=== PATIENT | female | born 1980 | race Caucasian/White ===

== ENCOUNTER 2016-06-04 11:41 | Emergency (ER) | payer OTHER ==
[2016-06-04] MEDS ORDERED: oxyCODONE 5 MG TABLET PO STA (13:07)
[2016-06-04] MEDS ORDERED: oxyCODONE 5 MG TABLET ONE (13:12)
[2016-06-04] MEDS ORDERED: HYDROcod/ACETAM 5/325 MG TABLET PO STA (13:17)
[2016-06-04] MEDS ORDERED: HYDROcod/ACETAM 5/325 MG TABLET ONE (13:18)
== END 2016-06-04 15:56 | disposition home or self-care (01) ==
DX: R10.2 Pelvic and perineal pain (principal)
CPT/HCPCS: 76856; 81001; 81025; 93975; 99283; 99284; A9270

== ENCOUNTER 2016-11-27 14:07 | Emergency (ER) | payer OTHER ==
[2016-11-27 14:52] LABS: BILIRUBIN,URINE NEGATIVE (NEGATIVE); PH,URINE 6.5 PH (5.0-7.5); UA CHARGE (STRIP ONLY) YES; UR CULTURE IF IND NOT INDICATED
[2016-11-27] MEDS ORDERED: SODIUM CHLORIDE 0.9% 1,000 ML IV ONE (17:18)
[2016-11-27] MEDS ORDERED: ONDANSETRON 4 MG/2 ML VIAL IVP STA ×2 (17:18→20:06)
[2016-11-27] MEDS ORDERED: HYDROmorphone 1 MG/ML SYRINGE IVP STA ×2 (17:18→19:35)
--- NOTE | 2016-11-27 17:24 | ED Physician Documentation ---
PD HPI ABD PAIN - Stated complaint Stated Complaint: L SIDE PAIN - Chief complaint Chief Complaint: Abd Pain - History obtained from History obtained from: Patient - History of Present Illness Timing - onset: Yesterday Timing - details: Gradual onset Quality: Sharp, Pain Location: LLQ Associated symptoms: Nausea. No: Fever, Vomiting, Diarrhea, Dysuria, Vaginal bleeding - Additional information Additional information: Patient is a 36-year-old female who presents with left lower quadrant abdominal pain that started yesterday and is worse today. She reports associated nausea, without vomiting or diarrhea. She denies fever or dysuria. Her last menstrual period was 2 weeks ago. She is status post appendectomy and status post left nephrectomy. She also has undergone laparoscopic surgery in June 2016 for left hydrosalpinx. Review of Systems Constitutional: denies: Fever Ears: denies: Tinnitus/ringing Nose: denies: Congestion Throat: denies: Sore throat Cardiac: denies: Chest pain / pressure Respiratory: denies: Dyspnea, Cough GI: reports: Abdominal Pain, Nausea. denies: Vomiting, Diarrhea : reports: LMP (2 weeks ago). 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 : Other Musculoskeletal: Fibromyalgia - Past Surgical History Past Surgical History: Yes General: Appendectomy, Other (Left nephrectomy) /PRIMARY CARE PHYSICIAN: Tubal ligation - Present Medications Home Medications: Ambulatory Orders Medication Instructions Recorded Confirmed Ranitidine HCl 150 mg TID 01/16/16 11/27/16 Gabapentin [Neurontin] 100 mg PO DAILY 11/27/16 11/27/16 HYDROcod/ACETAM 5/325 [Vicodin 1 - 2 ea PO Q6H PRN #20 tablet 11/27/16 5/325] Zolpidem [Ambien] 5 mg PO DAILY 11/27/16 11/27/16 - Allergies Allergies/Adverse Reactions: Allergies Allergy/AdvReac Type Severity Reaction Status Date / Time Penicillins Allergy Emesis Verified 11/27/16 16:21 - Social History Does the pt smoke?: No Smoking Status: Never smoker Does the pt drink ETOH?: No Does the pt have substance abuse?: No - Immunizations Immunizations are current?: Yes - POLST Patient has POLST: No PD ED PE NORMAL - Vitals Vital signs reviewed: Yes (normal) - General General: Alert and oriented X 3, Well developed/nourished - HEENT HEENT: Atraumatic, Pharynx benign - Neck Neck: No adenopathy, No JVD - Cardiac Cardiac: RRR, No murmur - Respiratory Respiratory: No respiratory distress, Clear bilaterally - Abdomen Abdomen: Normal bowel sounds, Soft, No organomegaly, Other (Mild tenderness to palpation across the lower abdomen, slightly more on the left than the right. No rebound tenderness or guarding.) - Back Back: No CVA TTP - Derm Derm: No rash - Extremities Extremities: No edema, No calf tenderness / cord - Neuro Neuro: Alert and oriented X 3, No motor deficit, Normal speech Results - Vitals Vitals: Vital Signs - 24 hr 11/27/16 11/27/16 15:47 19:35 Temperature 36 C L 36.5 C Heart Rate 78 70 Respiratory 16 18 Rate Blood Pressure 103/72 117/80 O2 Saturation 98 100 Oxygen O2 Source Room air - Labs Labs: Laboratory Tests 11/27/16 11/27/16 11/27/16 14:45 17:26 17:26 WBC 10.7 RBC 4.77 Hgb 13.6 Hct 39.6 MCV 83.1 MCH 28.6 MCHC 34.4 RDW 13.7 Plt Count 437 MPV 7.4 L Neut # 7.5 H Lymph # 2.3 [place] # 0.6 Eos # 0.2 Baso # 0.1 Absolute Nucleated RBC 0.00 Nucleated RBCs 0.0 Sodium 138 Potassium 3.8 Chloride 101 Carbon Dioxide 27 Anion Gap 10.0 BUN 6 Creatinine 0.7 Estimated GFR (MDRD) 94 Glucose 109 H Calcium 9.6 Total Bilirubin 0.4 AST 17 ALT 17 Alkaline Phosphatase 58 Total Protein 8.3 H Albumin 4.4 Globulin 3.9 Albumin/Globulin Ratio 1.1 Lipase 24 Urine Color YELLOW Urine Clarity CLEAR Urine pH 6.5 Ur Specific [place] <=1.005 Urine Protein NEGATIVE Urine Glucose (UA) NEGATIVE Urine Ketones NEGATIVE Urine Occult Blood NEGATIVE Urine Nitrite NEGATIVE Urine Bilirubin NEGATIVE Urine Urobilinogen 0.2 (NORMAL) Ur Leukocyte Esterase NEGATIVE Ur Microscopic Review NOT INDICATED Urine Culture Comments NOT INDICATED - Rads (name of study) CT abd/pelvis w/o Radiology: Prelim report reviewed, EMP read contemporaneously, See rad report ( No acute findings. Left adnexal complex cystic mass measures 5.4 x 3.7 x 6.3 cm. There is a complex cystic mass on the prior CT with which measured 5.1 x 3.1 x 5.0 cm. The MR pelvis shows this complex mass appears to be hydrosalpinx. No hydronephrosis. No urinary tract calculi.) PD MEDICAL DECISION MAKING - ED course Complexity details: reviewed old records, reviewed results, re-evaluated patient , considered differential, d/w patient, d/w family ED course: The patient's presentation with left lower quadrant/pelvic pain is most consistent with cystic mass consistent with left hydrosalpinx, seen on CT scan. This is similar to the CT scan that was done in June prior to her laparoscopic surgery. CBC reveals a normal white blood cell count and normal hemoglobin and hematocrit. Urinalysis is negative. Treatment in the emergency department included administration of normal saline 1 L IV, hydromorphone 0.5 mg IV 2, and Zofran 4 mg IV 2. This significantly improved the patient's discomfort. She is being discharged with prescription for Vicodin 20 tablets. I discussed with her and her the results of the CT scan, symptomatic treatment and outpatient follow-up, as well as potentially worrisome signs or symptoms that should prompt reevaluation in the emergency department. Departure - Departure Disposition: 01 Home, Self Care Clinical Impression: Hydrosalpinx Condition: Stable Instructions: ED Pelvic Pain [facility] Follow-Up: Manasa Rinaldi MD [Provider Admit Priv/Credential] - Prescriptions: HYDROcod/ACETAM 5/325 [Vicodin 5/325] 1 - 2 ea PO Q6H PRN #20 tablet PRN Reason: Pain Comments: You can use Vicodin as prescribed if needed for pain. Follow-up with your rod buster. Call to schedule next available appointment. Return to the emergency department if you develop increasing pain, persistent vomiting, or otherwise worsening symptoms. Discharge Date/Time: 11/27/16 20:49
[2016-11-27 17:36] LABS: BASOPHILS # (AUTO) 0.1 10^3/uL (0.0-0.1); BASOPHILS % (AUTO) 0.5 %; EOSINOPHILS # (AUTO) 0.2 10^3/uL (0.0-0.7); EOSINOPHILS % (AUTO) 1.9 %; HCT - HEMATOCRIT 39.6 % (37.0-47.0); HGB - HEMOGLOBIN 13.6 g/dL (12.0-16.0); LYMPHOCYTES # (AUTO) 2.3 10^3/uL (1.5-3.5); MEAN CORPUSCULAR HEMOGLOBIN 28.6 pg (27.0-31.0); MEAN CORPUSCULAR HGB CONC 34.4 g/dL (32.0-36.0); MEAN CORPUSCULAR VOLUME 83.1 fL (81.0-99.0); MEAN PLATELET VOLUME 7.4 fL (7.9-10.8); MONOCYTES # (AUTO) 0.6 10^3/uL (0.0-1.0); MONOCYTES % (AUTO) 5.5 %; NEUTROPHILS # (AUTO) 7.5 10^3/uL (1.5-6.6); NEUTROPHILS % (AUTO) 70.1 %; RED BLOOD COUNT 4.77 10^6/uL (4.20-5.40); RED CELL DISTRIBUTION WIDTH 13.7 % (12.0-15.0); UNCORRECTED WHITE BLOOD COUNT 10.7 x10^3/uL; WHITE BLOOD COUNT 10.7 x10^3/uL (4.8-10.8)
[2016-11-27] MEDS ORDERED: SODIUM CHLORIDE FLUSH 0.9% 10 ML SYRINGE IVP ONE (17:45)
[2016-11-27 17:56] LABS: ALBUMIN/GLOBULIN RATIO 1.1 (1.0-2.2); BILIRUBIN,TOTAL 0.4 mg/dL (0.2-1.0); CALCIUM 9.6 mg/dL (8.5-10.3); CREATININE 0.7 mg/dL (0.4-1.0); POTASSIUM 3.8 mmol/L (3.5-5.0); TOTAL PROTEIN 8.3 g/dL (6.7-8.2)
[2016-11-27] MEDS ORDERED: HYDROmorphone 1 MG/ML SYRINGE ONE ×2 (18:07→19:46)
[2016-11-27] MEDS ORDERED: ONDANSETRON 4 MG/2 ML VIAL ONE ×2 (18:07→20:12)
--- NOTE | 2016-11-27 18:31 | CT Preliminary Report ---
Exam: CT Abdomen/Pelvis W/O Impression 1. No acute findings. 2. Left adnexal complex cystic mass measures 5.4 x 3.7 x 6.3 cm. There is a complex cystic mass on th e prior CT which measured 5.1 x 3.1 x 5.0 cm. The MR pelvis shows this complex mass appears to be hyd rosalpinx. 3. No hydronephrosis. No urinary tract calculi. [facility] SITE ID: [id number]
--- NOTE | 2016-11-27 18:34 | CT Report ---
EXAM: CT ABDOMEN AND PELVIS (CT KUB) EXAM DATE: 11/27/2016 05:54 PM. CLINICAL HISTORY: Lower abdominal pain, left right. COMPARISONS: CT abdomen and pelvis 01/16/2016. 01/30/16 MR pelvis TECHNIQUE: Routine axial helical CT imaging was performed through the abdomen and pelvis without IV c ontrast. Reconstructions: Coronal and sagittal. In accordance with CT protocol optimization, one or more of the following dose reduction techniques w ere utilized for this exam: automated exposure control, adjustment of mA and/or KV based on patient s ize, or use of iterative reconstructive technique. FINDINGS: Lung Bases: No acute findings. Liver: No liver masses are seen. Gallbladder: Normal. Bile ducts: Normal Pancreas: Normal. Spleen: Normal. Adrenals: Normal. Kidneys: No renal calculi. No hydronephrosis. No ureteral or bladder calculi are seen. No hydroureter . Bowel: No evidence for bowel obstruction. No acute bowel findings are seen. No free fluid or free air . No abdominal aortic aneurysm. Pelvic organs: Uterus is retroverted. Left adnexal complex cystic mass measures 5.4 x 3.7 x 6.3 cm. T here is a complex cystic mass on the prior CT which measured 5.1 x 3.1 x 5.0 cm. The MR pelvis shows this complex mass appears to be hydrosalpinx. The right ovary appears unremarkable. The bladder appea rs unremarkable. No acute bone findings. Impression 1. No acute findings. 2. Left adnexal complex cystic mass measures 5.4 x 3.7 x 6.3 cm. There is a complex cystic mass on th e prior CT which measured 5.1 x 3.1 x 5.0 cm. The MR pelvis shows this complex mass appears to be hyd rosalpinx. 3. No hydronephrosis. No urinary tract calculi. [facility] Referring Provider Line: [phone] SITE ID: [id number]
[2016-11-27 19:37] VITALS: BP 117/80
== END 2016-11-27 20:49 | disposition home or self-care (01) ==
LOC: ED 14:07
DX: N70.11 Chronic salpingitis (principal); Z87.42 Personal history of other diseases of the female genital tract; M79.7 Fibromyalgia
CPT/HCPCS: 36415; 74176; 80053; 81003; 83690; 85025; 96361; 96374; 96375; 96376; 99283; 99284; J1170; 81001; 87086

== ENCOUNTER 2017-01-02 17:45 | Emergency (ER) | payer OTHER ==
[2017-01-02 18:16] LABS: BILIRUBIN,URINE NEGATIVE (NEGATIVE)
[2017-01-02 18:19] LABS: HCG UR QUAL NEGATIVE; UA CHARGE (STRIP ONLY) YES; UR CULTURE IF IND NOT INDICATED
[2017-01-02] MEDS ORDERED: SODIUM CHLORIDE 0.9% 1,000 ML IV ONE (18:59)
[2017-01-02] MEDS ORDERED: ONDANSETRON 4 MG/2 ML VIAL IVP STA ×2 (18:59→22:00)
[2017-01-02] MEDS ORDERED: HYDROmorphone 1 MG/ML SYRINGE IVP STA ×2 (18:59→22:00)
--- NOTE | 2017-01-02 19:05 | ED Physician Documentation ---
PD HPI CHEST PAIN - Stated complaint Stated Complaint: N/V/FEVER - Chief complaint Chief Complaint: Abd Pain - History obtained from History obtained from: Patient - Additional information Additional information: Patient is a 36-year-old female who has had bilateral salpingectomy in June for severe PID. She has a left ovarian cyst that is been present off and on for years that is quite large and pending outpatient removal in the future. She presents with a complaint of nausea, mild vomiting, feeling of dizziness when she stands decreased p.o. intake and hot and cold chills. She denies any constipation, diarrhea or lower urinary symptoms. She has a single kidney so this is also a concern. There is no history of kidney stones. She denies any cough, or ear nose and throat symptoms. There are no complaints of vaginal bleeding or discharge. Review of systems: For pertinent positive and negatives in the review of systems please see the history of present illness, otherwise all other systems have been reviewed and are negative. Dragon disclaimer: Parts of this medical record were created using voice recognition technology. Because of the inherent limitations of this system, occasional same sounding word substitutions do occur and persist despite proofreading. Please read the document for context. 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 : Other Musculoskeletal: Fibromyalgia - Past Surgical History Past Surgical History: Yes General: Appendectomy, Other /COMPUTER ENGINEER: Tubal ligation - Present Medications Home Medications: Ambulatory Orders Medication Instructions Recorded Confirmed Ranitidine HCl 150 mg TID 01/16/16 01/02/17 HYDROcod/ACETAM 5/325 [Vicodin 1 - 2 ea PO Q6H PRN #20 tablet 11/27/16 01/02/17 5/325] Zolpidem [Ambien] 5 mg PO DAILY 11/27/16 01/02/17 Ondansetron Odt [Zofran] 4 mg TL Q6H PRN #14 tablet 01/02/17 oxyCODONE/ACET 5/325 [Percocet 5 1 each PO Q4-6H PRN #16 tablet 01/02/17 mg/325 mg] - Allergies Allergies/Adverse Reactions: Allergies Allergy/AdvReac Type Severity Reaction Status Date / Time Penicillins Allergy Emesis Verified 11/27/16 16:21 - Social History Does the pt smoke?: No Smoking Status: Never smoker Does the pt drink ETOH?: No Does the pt have substance abuse?: No - Immunizations Immunizations are current?: Yes - POLST Patient has POLST: No PD ED PE NORMAL - Vitals Vital signs reviewed: Yes - General General: Alert and oriented X 3, No acute distress, Well developed/nourished - HEENT HEENT: Atraumatic, PERRL - Neck Neck: Supple, no meningeal sign, No bony TTP, No JVD - Cardiac Cardiac: RRR, No gallop - Respiratory Respiratory: No respiratory distress - Abdomen Abdomen: Normal bowel sounds, Soft, Non tender, Non distended, Other ( left lower quadrant tenderness on deep palpation) - Derm Derm: Normal color, Warm and dry, No rash, Other - Extremities Extremities: No deformity, No tenderness to palpate, Normal ROM s pain, No edema - Neuro Neuro: Alert and oriented X 3 - Psych Psych: Normal mood, Normal affect Results - Vitals Vitals: Vital Signs - 24 hr 01/02/17 01/02/17 17:53 20:49 Temperature 36.3 C L Heart Rate 77 82 Respiratory 16 18 Rate Blood Pressure 111/70 100/53 L O2 Saturation 97 98 Oxygen O2 Source Room air - Labs Labs: Laboratory Tests 01/02/17 01/02/17 01/02/17 18:00 19:45 19:45 WBC 10.8 RBC 4.91 Hgb 13.5 Hct 40.4 MCV 82.2 MCH 27.5 MCHC 33.5 RDW 13.8 Plt Count 437 MPV 7.5 L Neut # 7.4 H Lymph # 2.4 [place] # 0.6 Eos # 0.2 Baso # 0.1 Absolute Nucleated RBC 0.01 Nucleated RBCs 0.1 Sodium 137 Potassium 3.8 Chloride 103 Carbon Dioxide 26 Anion Gap 8.0 BUN 6 Creatinine 0.7 Estimated GFR (MDRD) 94 Glucose 99 Calcium 9.4 Total Bilirubin 0.3 AST 18 ALT 24 Alkaline Phosphatase 59 Total Protein 7.9 Albumin 4.4 Globulin 3.5 Albumin/Globulin Ratio 1.3 Lipase 28 Urine Color YELLOW Urine Clarity CLEAR Urine pH 6.0 Ur Specific [place] <=1.005 Urine Protein NEGATIVE Urine Glucose (UA) NEGATIVE Urine Ketones NEGATIVE Urine Occult Blood TRACE-INTA Urine Nitrite NEGATIVE Urine Bilirubin NEGATIVE Urine Urobilinogen 0.2 (NORMAL) Ur Leukocyte Esterase NEGATIVE Ur Microscopic Review NOT INDICATED Urine Culture Comments NOT INDICATED Urine HCG, Qual NEGATIVE PD MEDICAL DECISION MAKING - ED course ED course: Patient is a 36-year-old female with known left ovarian cyst pending surgical removal. She presents with nausea and left-sided abdominal pain. On exam she has mild left lower quadrant tenderness. She has not had any significant vomiting and according to the patient she has had a bilateral salpingectomy so ovarian torsion is less likely. She has not had any vomiting here so did not feel an ultrasound was required tonight. She actually looks pretty good and was given IV fluids, pain and nausea medications. Routine labs chemistries and urinalysis were performed and are unremarkable. The patient looks much better after getting hydration at this point is stable to be discharged to home. Disposition: To home Clinical impression: 1. Left ovarian cyst 2. Left lower quadrant abdominal pain with nausea Departure - Departure Disposition: 01 Home, Self Care Clinical Impression: Cyst of ovary Condition: Good Instructions: ED Cyst Ovarian Follow-Up: SUKHDEV IBARRA MD [Primary Care Provider] - Prescriptions: oxyCODONE/ACET 5/325 [Percocet 5 mg/325 mg] 1 each PO Q4-6H PRN #16 tablet PRN Reason: Pain Ondansetron Odt [Zofran] 4 mg TL Q6H PRN #14 tablet PRN Reason: Nausea / Vomiting
[2017-01-02] MEDS ORDERED: SODIUM CHLORIDE FLUSH 0.9% 10 ML SYRINGE IVP ONE (19:36)
[2017-01-02] MEDS ORDERED: HYDROmorphone 1 MG/ML SYRINGE ONE ×2 (19:36→22:11)
[2017-01-02] MEDS ORDERED: ONDANSETRON 4 MG/2 ML VIAL ONE ×2 (19:36→22:11)
[2017-01-02 19:55] LABS: BASOPHILS # (AUTO) 0.1 10^3/uL (0.0-0.1); BASOPHILS % (AUTO) 0.7 %; EOSINOPHILS # (AUTO) 0.2 10^3/uL (0.0-0.7); EOSINOPHILS % (AUTO) 2.1 %; HCT - HEMATOCRIT 40.4 % (37.0-47.0); HGB - HEMOGLOBIN 13.5 g/dL (12.0-16.0); LYMPHOCYTES # (AUTO) 2.4 10^3/uL (1.5-3.5); LYMPHOCYTES % (AUTO) 22.5 %; MEAN CORPUSCULAR HEMOGLOBIN 27.5 pg (27.0-31.0); MEAN CORPUSCULAR HGB CONC 33.5 g/dL (32.0-36.0); MEAN CORPUSCULAR VOLUME 82.2 fL (81.0-99.0); MEAN PLATELET VOLUME 7.5 fL (7.9-10.8); MONOCYTES # (AUTO) 0.6 10^3/uL (0.0-1.0); MONOCYTES % (AUTO) 5.8 %; NEUTROPHILS # (AUTO) 7.4 10^3/uL (1.5-6.6); NEUTROPHILS % (AUTO) 68.9 %; NUCLEATED RED BLOOD CELLS AUTO 0.1 /100WBC; RED BLOOD COUNT 4.91 10^6/uL (4.20-5.40); RED CELL DISTRIBUTION WIDTH 13.8 % (12.0-15.0); UNCORRECTED WHITE BLOOD COUNT 10.8 x10^3/uL; WHITE BLOOD COUNT 10.8 x10^3/uL (4.8-10.8)
[2017-01-02 20:07] LABS: ALBUMIN/GLOBULIN RATIO 1.3 (1.0-2.2); BILIRUBIN,TOTAL 0.3 mg/dL (0.2-1.0); CALCIUM 9.4 mg/dL (8.5-10.3); CREATININE 0.7 mg/dL (0.4-1.0); POTASSIUM 3.8 mmol/L (3.5-5.0); TOTAL PROTEIN 7.9 g/dL (6.7-8.2)
[2017-01-02 23:16] VITALS: BP 100/60
== END 2017-01-02 23:18 | disposition home or self-care (01) ==
LOC: ED 17:45
DX: N83.202 Unspecified ovarian cyst, left side (principal); Z90.5 Acquired absence of kidney; Z90.79 Acquired absence of other genital organ(s); M79.7 Fibromyalgia
CPT/HCPCS: 36415; 80053; 81003; 81025; 83690; 85025; 96374; 96375; 96376; 99283; 99284; J1170; 81001; 83036; 87086

== ENCOUNTER 2017-01-12 17:17 | Emergency (ER) | payer OTHER ==
[2017-01-12] MEDS ORDERED: HYDROmorphone 1 MG/ML SYRINGE IM STA (19:58)
[2017-01-12] MEDS ORDERED: PROMETHAZINE 25 MG/1 ML VIAL IM STA (19:59)
[2017-01-12 20:05] LABS: BILIRUBIN,URINE NEGATIVE (NEGATIVE); PH,URINE 5.5 PH (5.0-7.5)
[2017-01-12 20:07] LABS: UA CHARGE (STRIP ONLY) YES; UR CULTURE IF IND NOT INDICATED
[2017-01-12] MEDS: KETOROLAC 30 MG/ML VIAL IM STA (20:08)
[2017-01-12] MEDS ORDERED: HYDROmorphone 1 MG/ML SYRINGE ONE (20:08)
[2017-01-12] MEDS ORDERED: PROMETHAZINE 25 MG/1 ML VIAL ONE (20:08)
[2017-01-12] MEDS ORDERED: KETOROLAC 30 MG/ML VIAL ONE (20:08)
[2017-01-12 20:42] LABS: ALBUMIN/GLOBULIN RATIO 1.2 (1.0-2.2); BILIRUBIN,TOTAL 0.3 mg/dL (0.2-1.0); CALCIUM 9.3 mg/dL (8.5-10.3); CREATININE 0.6 mg/dL (0.4-1.0); POTASSIUM 3.5 mmol/L (3.5-5.0); TOTAL PROTEIN 7.8 g/dL (6.7-8.2)
[2017-01-12 20:52] LABS: BASOPHILS # (AUTO) 0.1 10^3/uL (0.0-0.1); BASOPHILS % (AUTO) 0.5 %; EOSINOPHILS # (AUTO) 0.2 10^3/uL (0.0-0.7); EOSINOPHILS % (AUTO) 1.6 %; HCT - HEMATOCRIT 36.9 % (37.0-47.0); HGB - HEMOGLOBIN 12.5 g/dL (12.0-16.0); LYMPHOCYTES # (AUTO) 2.8 10^3/uL (1.5-3.5); LYMPHOCYTES % (AUTO) 23.2 %; MEAN CORPUSCULAR HEMOGLOBIN 27.8 pg (27.0-31.0); MEAN CORPUSCULAR HGB CONC 33.9 g/dL (32.0-36.0); MEAN CORPUSCULAR VOLUME 82.1 fL (81.0-99.0); MEAN PLATELET VOLUME 7.6 fL (7.9-10.8); MONOCYTES # (AUTO) 0.6 10^3/uL (0.0-1.0); MONOCYTES % (AUTO) 5.3 %; NEUTROPHILS # (AUTO) 8.3 10^3/uL (1.5-6.6); NEUTROPHILS % (AUTO) 69.4 %; RED CELL DISTRIBUTION WIDTH 13.6 % (12.0-15.0)
[2017-01-12] MEDS ORDERED: oxyCODONE/ACET 5/325 Prepack 4 PO STA (21:16)
--- NOTE | 2017-01-12 21:19 | ED Physician Documentation ---
PD HPI FEMALE - Stated complaint Stated Complaint: FEVER/NAUSEA - Chief complaint Chief Complaint: Abd Pain - History obtained from History obtained from: Patient - History of Present Illness Timing - onset: How many days ago (has had pelvic pain for several weeks Dx due to ovarian cysts. Has had worse similar pain the past few days. No abrupt pain.) Timing - duration: Days Timing - details: Gradual onset, Still present, Waxing and waning Associated symptoms: Pelvic pain. 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 History: Ovarian cysts Similar symptoms before: Diagnosis (ovarian cyst pain) Recently seen: Other (has appt with MOTORCYCLE SUBASSEMBLY REPAIRER in a few days this coming week.) Review of Systems Constitutional: denies: Fever, Chills Nose: denies: Rhinorrhea / runny nose, Congestion Throat: denies: Sore throat Respiratory: denies: Cough GI: denies: Nausea, Vomiting, Diarrhea Skin: denies: Rash, Lesions PD PAST MEDICAL HISTORY - Past Medical History Cardiovascular: None Respiratory: None Neuro: None Endocrine/Autoimmune: None 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 : Other Musculoskeletal: Fibromyalgia - Past Surgical History Past Surgical History: Yes General: Appendectomy, Other /MOTORCYCLE SUBASSEMBLY REPAIRER: Tubal ligation - Present Medications Home Medications: Ambulatory Orders Medication Instructions Recorded Confirmed Ranitidine HCl 150 mg TID 01/16/16 01/12/17 Zolpidem [Ambien] 5 mg PO DAILY 11/27/16 01/12/17 Ondansetron Odt [Zofran] 4 mg TL Q6H PRN #14 tablet 01/02/17 01/12/17 Ondansetron Odt [Zofran] 4 mg TL Q6H PRN #15 tablet 01/12/17 Oxycodone HCl/Acetaminophen 1 each PO Q6H PRN #15 tablet 01/12/17 [Percocet 5-325 mg Tablet] - Allergies Allergies/Adverse Reactions: Allergies Allergy/AdvReac Type Severity Reaction Status Date / Time Penicillins Allergy Emesis Verified 11/27/16 16:21 - Social History Does the pt smoke?: No Smoking Status: Never smoker Does the pt drink ETOH?: No Does the pt have substance abuse?: No - Immunizations Immunizations are current?: Yes - POLST Patient has POLST: No PD ED PE NORMAL - Vitals Vital signs reviewed: Yes - General General: Alert and oriented X 3, No acute distress, Well developed/nourished - Cardiac Cardiac: RRR, No murmur - Respiratory Respiratory: Clear bilaterally - Abdomen Abdomen: Normal bowel sounds, Soft, Non distended, Other - Female Female : Deferred - Rectal Rectal: Deferred - Back Back: No CVA TTP - Derm Derm: Normal color, Warm and dry, No rash - Neuro Neuro: Alert and oriented X 3, No motor deficit, Normal speech Results - Vitals Vitals: Oxygen O2 Source Room air - Labs Labs: Laboratory Tests 01/12/17 01/12/17 01/12/17 18:05 20:10 20:10 WBC 12.0 H RBC 4.50 Hgb 12.5 Hct 36.9 L MCV 82.1 MCH 27.8 MCHC 33.9 RDW 13.6 Plt Count 455 H MPV 7.6 L Neut # 8.3 H Lymph # 2.8 [place] # 0.6 Eos # 0.2 Baso # 0.1 Absolute Nucleated RBC 0.00 Nucleated RBCs 0.0 Sodium 140 Potassium 3.5 Chloride 104 Carbon Dioxide 27 Anion Gap 9.0 BUN 7 Creatinine 0.6 Estimated GFR (MDRD) 112 Glucose 95 Calcium 9.3 Total Bilirubin 0.3 AST 15 ALT 12 Alkaline Phosphatase 52 Total Protein 7.8 Albumin 4.3 Globulin 3.5 Albumin/Globulin Ratio 1.2 Lipase 29 Urine Color STRAW Urine Clarity CLEAR Urine pH 5.5 Ur Specific [place] <=1.005 Urine Protein NEGATIVE Urine Glucose (UA) NEGATIVE Urine Ketones NEGATIVE Urine Occult Blood TRACE-LYSE Urine Nitrite NEGATIVE Urine Bilirubin NEGATIVE Urine Urobilinogen 0.2 (NORMAL) Ur Leukocyte Esterase NEGATIVE Ur Microscopic Review NOT INDICATED Urine Culture Comments NOT INDICATED PD MEDICAL DECISION MAKING - ED course Complexity details: considered differential (presume similar cyst pain. Not abrupt and not severe, so does not seem like torsion. Did not see need for recurrent imaging. Will be seeing specialist soon. ), d/w patient Departure - Departure Disposition: 01 Home, Self Care Clinical Impression: Pelvic pain Cyst of ovary Qualifiers: Laterality: unspecified laterality Qualified Code(s): N83.209 - Unspecified ovarian cyst, unspecified side Condition: Stable Record reviewed to determine appropriate education?: Yes Instructions: ED Pelvic Pain [facility] Follow-Up: Jean Solomon MD [Primary Care Provider] - Prescriptions: Oxycodone HCl/Acetaminophen [Percocet 5-325 mg Tablet] 1 each PO Q6H PRN #15 tablet PRN Reason: Pain Ondansetron Odt [Zofran] 4 mg TL Q6H PRN #15 tablet PRN Reason: Nausea / Vomiting Comments: Tylenol or ibuprofen if needed for mild pains. Had Percocet if needed. Use ondansetron if needed for nausea. Return if worsening pain, fevers, vomiting, bleeding, other concerns. Discharge Date/Time: 01/12/17 21:43
[2017-01-12] MEDS ORDERED: oxyCODONE/ACET 5/325 Prepack 4 PO ONE (21:38)
[2017-01-12 21:40] VITALS: BP 117/75
== END 2017-01-12 21:43 | disposition home or self-care (01) ==
LOC: ED 17:17
DX: N83.209 Unspecified ovarian cyst, unspecified side (principal)
CPT/HCPCS: 36415; 80053; 81003; 83690; 85025; 96372; 99283; 99284; J1170; 81001; 87086

== ENCOUNTER 2017-04-08 12:23 | Emergency (ER) | payer OTHER ==
[2017-04-08 13:16] LABS: BASOPHILS # (AUTO) 0.1 10^3/uL (0.0-0.1); BASOPHILS % (AUTO) 0.7 %; EOSINOPHILS # (AUTO) 0.1 10^3/uL (0.0-0.7); EOSINOPHILS % (AUTO) 1.4 %; HCT - HEMATOCRIT 36.6 % (37.0-47.0); HGB - HEMOGLOBIN 12.3 g/dL (12.0-16.0); LYMPHOCYTES % (AUTO) 22.7 %; MEAN CORPUSCULAR HEMOGLOBIN 26.3 pg (27.0-31.0); MEAN CORPUSCULAR HGB CONC 33.6 g/dL (32.0-36.0); MEAN CORPUSCULAR VOLUME 78.3 fL (81.0-99.0); MEAN PLATELET VOLUME 7.4 fL (7.9-10.8); MONOCYTES # (AUTO) 0.5 10^3/uL (0.0-1.0); MONOCYTES % (AUTO) 5.5 %; NEUTROPHILS # (AUTO) 6.2 10^3/uL (1.5-6.6); NEUTROPHILS % (AUTO) 69.7 %; RED BLOOD COUNT 4.68 10^6/uL (4.20-5.40); RED CELL DISTRIBUTION WIDTH 14.5 % (12.0-15.0); UNCORRECTED WHITE BLOOD COUNT 8.9 x10^3/uL; WHITE BLOOD COUNT 8.9 x10^3/uL (4.8-10.8)
[2017-04-08 13:29] LABS: ALBUMIN/GLOBULIN RATIO 1.2 (1.0-2.2); BILIRUBIN,TOTAL 0.4 mg/dL (0.2-1.0); CALCIUM 9.5 mg/dL (8.5-10.3); CREATININE 0.6 mg/dL (0.4-1.0); POTASSIUM 3.6 mmol/L (3.5-5.0)
[2017-04-08 13:42] LABS: BILIRUBIN,URINE NEGATIVE (NEGATIVE)
[2017-04-08 13:43] LABS: UA w/ MICROSCOPIC CHARGE YES
[2017-04-08 13:53] LABS: UR CULTURE IF IND NOT INDICATED; WBC,URINE 0-3 /HPF (0-5)
[2017-04-08] MEDS ORDERED: PROMETHAZINE 25 MG/1 ML VIAL IM STA (14:17)
--- NOTE | 2017-04-08 14:19 | ED Physician Documentation ---
History of Present Illness - Stated complaint Stated Complaint: POST OP/WEAK - Chief complaint Chief Complaint: Abd Pain - History obtained from History obtained from: Patient, Family - History of Present Illness Timing: How many days ago (2) Pain level max: 5 Pain level now: 4 Improved by: rest Worsened by: movement - Additonal information Additional information: Patient is a 36-year-old female who presents to the emergency department with abdominal pain, especially with coughing for the past 2 days. She has also had intermittent vomiting. No diarrhea. No constipation. Normal bowel movements. States that she had a hysterectomy 5 weeks ago. She also states that she has had subjective intermittent fevers and chills. Rhinorrhea, congestion. Review of Systems Ten Systems: 10 systems reviewed and negative Constitutional: denies: Fever, Chills, Myalgias Eyes: denies: Decreased vision Ears: denies: Ear pain Nose: reports: Rhinorrhea / runny nose, Congestion Throat: denies: Sore throat Cardiac: denies: Chest pain / pressure Respiratory: reports: Cough GI: reports: Abdominal Pain, Nausea, Vomiting. 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 : Other Musculoskeletal: Fibromyalgia - Past Surgical History Past Surgical History: Yes General: Appendectomy, Other /UTILITY ENGINEER: Tubal ligation, Hysterectomy - Present Medications Home Medications: Ambulatory Orders Medication Instructions Recorded Confirmed raNITIdine HCl [Ranitidine HCl] 150 mg TID 01/16/16 01/12/17 Zolpidem [Ambien] 5 mg PO DAILY 11/27/16 04/08/17 Ondansetron Odt [Zofran] 4 mg TL Q6H PRN #14 tablet 01/02/17 04/08/17 Ondansetron Odt [Zofran] 4 mg TL Q6H PRN #15 tablet 01/12/17 04/08/17 Oxycodone HCl/Acetaminophen 1 each PO Q6H PRN #15 tablet 01/12/17 04/08/17 [Percocet 5-325 mg Tablet] Benzonatate [Tessalon Perle] 100 - 200 mg PO TID PRN #30 capsule 04/08/17 Hydrocodone/Acetaminophen 1 - 2 each PO Q6H PRN #14 tablet 04/08/17 [Hydrocodon-Acetaminophen 5-325] Scopolamine 1 each TD Q72H PRN #10 patch.td.3 04/08/17 - Allergies Allergies/Adverse Reactions: Allergies Allergy/AdvReac Type Severity Reaction Status Date / Time Penicillins Allergy Emesis Verified 11/27/16 16:21 - Social History Does the pt smoke?: No Smoking Status: Never smoker Does the pt drink ETOH?: No Does the pt have substance abuse?: No - Immunizations Immunizations are current?: Yes - POLST Patient has POLST: No PD ED PE NORMAL - Vitals Vital signs reviewed: Yes - General General: Alert and oriented X 3 - HEENT HEENT: Atraumatic, PERRL, Ears normal, Moist mucous membranes, Pharynx benign - Neck Neck: Supple, no meningeal sign - Cardiac Cardiac: RRR, Strong equal pulses - Respiratory Respiratory: No respiratory distress, Clear bilaterally - Abdomen Abdomen: Soft, Non tender, Non distended - Derm Derm: Warm and dry - Neuro Neuro: Alert and oriented X 3 - Psych Psych: Normal mood, Normal affect Results - Vitals Vitals: Vital Signs - 24 hr 04/08/17 04/08/17 12:31 14:24 Temperature 36.3 C L 36.7 C Heart Rate 98 77 Respiratory 18 18 Rate Blood Pressure 104/71 125/76 O2 Saturation 98 98 Oxygen O2 Source Room air - Labs Labs: Laboratory Tests 04/08/17 04/08/17 04/08/17 13:11 13:11 13:35 WBC 8.9 RBC 4.68 Hgb 12.3 Hct 36.6 L MCV 78.3 L MCH 26.3 L MCHC 33.6 RDW 14.5 Plt Count 463 H MPV 7.4 L Neut # 6.2 Lymph # 2.0 [place] # 0.5 Eos # 0.1 Baso # 0.1 Absolute Nucleated RBC 0.00 Nucleated RBC % 0.0 Sodium 138 Potassium 3.6 Chloride 104 Carbon Dioxide 25 Anion Gap 9.0 BUN 8 Creatinine 0.6 Estimated GFR (MDRD) 112 Glucose 108 H Calcium 9.5 Total Bilirubin 0.4 AST 15 ALT 12 Alkaline Phosphatase 61 Total Protein 8.0 Albumin 4.3 Globulin 3.7 Albumin/Globulin Ratio 1.2 Lipase 24 Urine Color YELLOW Urine Clarity CLEAR Urine pH 6.0 Ur Specific Dane <=1.005 Urine Protein NEGATIVE Urine Glucose (UA) NEGATIVE Urine Ketones NEGATIVE Urine Occult Blood SMALL H Urine Nitrite NEGATIVE Urine Bilirubin NEGATIVE Urine Urobilinogen 0.2 (NORMAL) Ur Leukocyte Esterase NEGATIVE Urine RBC 0-5 Urine WBC 0-3 Ur Squamous Epith Cells NONE SEEN Urine Bacteria None Seen Ur Microscopic Review INDICATED Urine Culture Comments NOT INDICATED PD MEDICAL DECISION MAKING - ED course Complexity details: reviewed results, re-evaluated patient, considered differential, d/w patient, d/w family ED course: Patient is a 36-year-old female who presents to the emergency department with what appears to be a viral upper respiratory infection. No evidence of pneumonia clinically. No evidence of sepsis. Abdomen is soft, nontender nondistended. Possible that she is having pain from adhesions and scarring that is being disrupted by her coughing. She is very well-appearing, nontoxic. We will continue supportive care and follow-up with her doctor. No acute laboratory abnormalities. Patient and family counseled regarding signs and symptoms for which I believe and urgent re-evaluation would be necessary. Patient with good understanding of and agreement to plan and is comfortable going home at this time This document was made in part using voice recognition software. While efforts are made to proofread this document, sound alike and grammatical errors may occur. Departure - Departure Disposition: 01 Home, Self Care Clinical Impression: Viral URI Abdominal pain Qualifiers: Abdominal location: unspecified location Qualified Code(s): R10.9 - Unspecified abdominal pain Condition: Good Instructions: ED Abdominal Pain Unkn Cause, ED Viral Syndrome Follow-Up: Jean Solomon MD [Primary Care Provider] - Within 1 week Prescriptions: Benzonatate [Tessalon Perle] 100 - 200 mg PO TID PRN #30 capsule PRN Reason: Cough Hydrocodone/Acetaminophen [Hydrocodon-Acetaminophen 5-325] 1 - 2 each PO Q6H PRN #14 tablet PRN Reason: pain Scopolamine 1 each TD Q72H PRN #10 patch.td.3 PRN Reason: Nausea / Vomiting Comments: Return if you worsen. This should improve over the next few days. Drink plenty of fluids and rest. Do not drink alcohol or drive while on narcotic pain medicine. Note that many narcotic pain relievers also contain tylenol/acetaminophen. Please ensure that your total dose of acetaminophen from all sources does not exceed 3 grams (3000mg) per day. You may constipated on this medication, take a stool softener such as "Colace" twice a day while you are on it. Also recommend a evtf-kpz-glmjqtt laxative such as senna or MiraLAX any day that you do not have a bowel movement. If you received narcotic pain medication in the emergency department, do not drive or operate machinery for the next 24 hours. Discharge Date/Time: 04/08/17 14:29
[2017-04-08 14:25] VITALS: BP 125/76
[2017-04-08] MEDS ORDERED: PROMETHAZINE 25 MG/1 ML VIAL ONE (14:32)
== END 2017-04-08 14:29 | disposition home or self-care (01) ==
LOC: ED 12:23
DX: J06.9 Acute upper respiratory infection, unspecified (principal); B97.89 Other viral agents as the cause of diseases classified elsewhere; M79.7 Fibromyalgia; Z90.710 Acquired absence of both cervix and uterus
CPT/HCPCS: 36415; 80053; 81001; 81003; 83690; 85025; 87086; 96372; 99282; 99283

== ENCOUNTER 2017-08-02 16:10 | Emergency (ER) | payer OTHER ==
[2017-08-02 16:19] VITALS: BP 106/77
[2017-08-02] MEDS ORDERED: ONDANSETRON ODT 4 MG TABLET TL STA (17:09)
[2017-08-02] MEDS ORDERED: HYDROcod/ACETAM 5/325 MG TABLET PO STA (17:09)
--- NOTE | 2017-08-02 17:17 | ED Physician Documentation ---
History of Present Illness - Stated complaint Stated Complaint: FELL WHOLE RT SIDE PX,ANKLE PX - Chief complaint Chief Complaint: Trauma Ext - History obtained from History obtained from: Patient - History of Present Illness Timing: Last night (Fell down stairs last night- tripped over her dog. Went end over end. More headache today with slight confusion, also vomited last night. Some neck pain. Worst thing in R shoulder but also B ankle pain. Walking ok. S/ P Hyst) Review of Systems Constitutional: denies: Fever, Chills Cardiac: denies: Chest pain / pressure, Palpitations Respiratory: denies: Dyspnea, Cough GI: reports: Nausea. 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 : Other Musculoskeletal: Fibromyalgia - Past Surgical History Past Surgical History: Yes General: Appendectomy, Other /ACIDIZER WATER WELL: Tubal ligation, Hysterectomy - Present Medications Home Medications: Ambulatory Orders Medication Instructions Recorded Confirmed raNITIdine HCl [Ranitidine HCl] 150 mg TID 01/16/16 08/02/17 Zolpidem [Ambien] 5 mg PO DAILY 11/27/16 08/02/17 Ondansetron Odt [Zofran] 4 mg TL Q6H PRN #15 tablet 01/12/17 08/02/17 Gabapentin 1 tab PO BID PRN 08/02/17 08/02/17 HYDROcod/ACETAM 5/325 [[place] 5/325] 1 - 2 ea PO Q6H PRN #10 tablet 08/02/17 - Allergies Allergies/Adverse Reactions: Allergies Allergy/AdvReac Type Severity Reaction Status Date / Time Penicillins Allergy Emesis Verified 08/02/17 16:19 - Social History Does the pt smoke?: No Smoking Status: Never smoker Does the pt drink ETOH?: No Does the pt have substance abuse?: No - Immunizations Immunizations are current?: Yes - POLST Patient has POLST: No PD ED PE NORMAL - Vitals Vital signs reviewed: Yes - General General: Alert and oriented X 3, No acute distress - HEENT HEENT: PERRL, EOMI - Neck Neck: Supple, no meningeal sign, No bony TTP - Cardiac Cardiac: RRR, No murmur - Respiratory Respiratory: No respiratory distress, Clear bilaterally - Abdomen Abdomen: Soft, Non tender - Back Back: No CVA TTP, No spinal TTP - Extremities Extremities: Other (Diffusely TTP over R shoulder, Cannot abduct at all but int/ ext rotation is OK. B ankle Mild TTP over both malleoli.) - Neuro Neuro: Alert and oriented X 3, Normal speech Eye Opening: Spontaneous Motor: Obeys Commands Verbal: Oriented GCS Score: 15 - Psych Psych: Normal mood, Normal affect Results - Vitals Vitals: Vital Signs - 24 hr 08/02/17 16:16 Temperature 36.7 C Heart Rate 93 Respiratory 16 Rate Blood Pressure 106/77 O2 Saturation 97 Oxygen O2 Source Room air - Rads (name of study) CT Head/Cspine Radiology: EMP read contemporaneously (neg) B ankle and R shoulder XR Radiology: EMP read contemporaneously (normal) Departure - Departure Disposition: 01 Home, Self Care Clinical Impression: Fall down stairs Ankle injury Qualifiers: Encounter type: initial encounter Laterality: unspecified laterality Qualified Code(s): S99.919A - Unspecified injury of unspecified ankle, initial encounter Shoulder injury Qualifiers: Encounter type: initial encounter Laterality: right Qualified Code(s): S49.91XA - Unspecified injury of right shoulder and upper arm, initial encounter Concussion Qualifiers: Encounter type: initial encounter Loss of consciousness presence/duration: without LOC Qualified Code(s): S06.0X0A - Concussion without loss of consciousness, initial encounter Neck sprain Qualifiers: Encounter type: initial encounter Qualified Code(s): S13.9XXA - Sprain of joints and ligaments of unspecified parts of neck, initial encounter Condition: Good Record reviewed to determine appropriate education?: Yes Instructions: ED Sprain Ankle W X Ray, ED Sprain Strain Neck Prescriptions: HYDROcod/ACETAM 5/325 [[place] 5/325] 1 - 2 ea PO Q6H PRN #10 tablet PRN Reason: Pain Comments: Call your doctor to arrange a follow-up appointment, make the next available appointment. In the interim, return anytime if worse or if new symptoms develop. Do not drink or drive while taking narcotic pain medication. Note that many narcotic pain relievers also contain Tylenol/acetaminophen. Please ensure that your total dose of acetaminophen from all sources does not exceed 3 g (3000 mg) per day. You may get constipated while on this medication. Take a stool softener such as Colace twice a day while you are on it. Also add an utlq-vrg-hxahapo laxative such as senna or MiraLAX on any day that you do not have a bowel movement. If you received a narcotic pain medication or sedative while in the emergency department, do not drive for the next 24 hours.
--- NOTE | 2017-08-02 17:58 | XRAY Report ---
EXAM: RIGHT SHOULDER RADIOGRAPHY EXAM DATE: 08/02/2017 05:35 PM. CLINICAL HISTORY: Fall down stairs, head neck R shoulder, B ankle pn. COMPARISON: None. TECHNIQUE: 3 views. FINDINGS: Bones: Normal. No fracture or bone lesion. Joints: The glenohumeral and acromioclavicular joints are normal. Soft tissues: Unremarkable. Clear visualized lung. IMPRESSION: Normal shoulder radiography. [facility] Referring Provider Line: [phone] SITE ID: [id number]
--- NOTE | 2017-08-02 18:00 | XRAY Report ---
EXAM: BILATERAL ANKLE RADIOGRAPHY EXAM DATE: 08/02/2017 05:35 PM. CLINICAL HISTORY: Fall down stairs, head neck R shoulder, B ankle pn. COMPARISON: None. TECHNIQUE: Each ankle, 3 views. FINDINGS: Bones: Normal. No fractures or bone lesions. Joints: Normal. No effusion. No subluxations. The ankle mortise is normally aligned. Soft Tissues: Mild soft tissue swelling over the malleoli. IMPRESSION: Soft tissue swelling. [facility] Referring Provider Line: [phone] SITE ID: [id number]
--- NOTE | 2017-08-02 18:18 | CT Preliminary Report ---
Exam: CT HEAD W/O IMPRESSION: Normal head CT. [facility] SITE ID: [id number]
--- NOTE | 2017-08-02 18:19 | CT Report ---
EXAM: CT HEAD EXAM DATE: 08/02/2017 05:53 PM. CLINICAL HISTORY: Fall, pain. COMPARISON: None. TECHNIQUE: Multiaxial CT images were obtained from the foramen magnum to the vertex. Reformats: Coron al. IV contrast: None. In accordance with CT protocol optimization, one or more of the following dose reduction techniques w ere utilized for this exam: automated exposure control, adjustment of mA and/or KV based on patient s ize, or use of iterative reconstructive technique. FINDINGS: Parenchyma: No intraparenchymal hemorrhage. No evidence of mass, midline shift, or CT findings of inf arction. Desir-white differentiation is distinct. Extraaxial Spaces: Normal for age. No subdural or epidural collections. Ventricles: Normal in size and position. Sinuses and Orbits: Imaged paranasal sinuses, orbits, and mastoids show no significant abnormality. Bones: Unremarkable. Other: None. IMPRESSION: Normal head CT. [facility] Referring Provider Line: [phone] SITE ID: [id number]
--- NOTE | 2017-08-02 18:21 | CT Report ---
EXAM: CT CERVICAL SPINE WITHOUT CONTRAST DATE: 08/02/2017 06:12 PM. HISTORY: Fall, pain. COMPARISONS: None. TECHNIQUE: Thin-section axial images were acquired of the cervical spine without contrast. Post-proce ssing: Coronal and sagittal reformats. Other: None. In accordance with CT protocol optimization, one or more of the following dose reduction techniques w ere utilized for this exam: automated exposure control, adjustment of mA and/or KV based on patient s ize, or use of iterative reconstructive technique. FINDINGS: Alignment: No scoliosis or spondylolisthesis. Bones: No fracture or bone lesion. Interspace Levels/Facets: Disk spaces well preserved. No degenerative changes. Musculature: Unremarkable. Other: The paravertebral and prevertebral soft tissues are unremarkable. The lung apices are clear. IMPRESSION: Normal cervical spine CT. [facility] Referring Provider Line: [phone] SITE ID: [id number]
== END 2017-08-02 18:34 | disposition home or self-care (01) ==
LOC: ED 16:10
DX: S06.0X0A Concussion without loss of consciousness, initial encounter (principal); S99.919A Unspecified injury of unspecified ankle, initial encounter; S49.91XA Unspecified injury of right shoulder and upper arm, initial encounter; S13.9XXA Sprain of joints and ligaments of unspecified parts of neck, initial encounter; W10.9XXA Fall (on) (from) unspecified stairs and steps, initial encounter; M79.7 Fibromyalgia
CPT/HCPCS: 70450; 72125; 73030; 73610; 99283; A9270; Q0162

== ENCOUNTER 2017-08-15 19:31 | Emergency (ER) | payer OTHER ==
[2017-08-15 19:39] VITALS: BP 113/73
--- NOTE | 2017-08-15 20:27 | ED Physician Documentation ---
PD HPI BACK INJURY - Stated complaint Stated Complaint: BACK PX - History obtained from History obtained from: Patient - History of Present Illness Type of injury: Fall Where injury occurred: Home Timing - details: Gradual onset Quality: Pain, Spasm Worsened by: Moving, Palpating Associated symptoms: No: Fever, Weakness, Numbness, Incontinent of urine Contributing factors: No: Prior back surgery, Work related Similar symptoms before: Diagnosis (low back pain in the past and has history of fibromylagia.) Recently seen: Emergency Dept (08/02/[address]s of spine and back as well as other xrays at that time.) Review of Systems Constitutional: denies: Fever, Chills : denies: Incontinent Skin: denies: Rash, Lesions Neurologic: denies: Focal weakness, Numbness PD PAST MEDICAL HISTORY - Past Medical History Past Medical History: Yes Cardiovascular: None Respiratory: None Neuro: None Endocrine/Autoimmune: None 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 : Other Musculoskeletal: Fibromyalgia - Past Surgical History Past Surgical History: Yes General: Appendectomy, Other /PRINTING ASSISTANT: Tubal ligation, Hysterectomy - Present Medications Home Medications: Ambulatory Orders Medication Instructions Recorded Confirmed raNITIdine HCl [Ranitidine HCl] 150 mg TID 01/16/16 08/02/17 Zolpidem [Ambien] 5 mg PO DAILY 11/27/16 08/02/17 Ondansetron Odt [Zofran] 4 mg TL Q6H PRN #15 tablet 01/12/17 08/02/17 Gabapentin 1 tab PO BID PRN 08/02/17 08/02/17 HYDROcod/ACETAM 5/325 [[place] 5/325] 1 - 2 ea PO Q6H PRN #10 tablet 08/02/17 Dexamethasone [Decadron] 4 mg PO DAILY #5 tablet 08/15/17 HYDROcod/ACETAM 5/325 [[place] 5/325] 1 tab PO Q6H PRN #20 tablet 08/15/17 - Allergies Allergies/Adverse Reactions: Allergies Allergy/AdvReac Type Severity Reaction Status Date / Time Penicillins Allergy Emesis Verified 08/02/17 16:19 - Social History Does the pt smoke?: No Smoking Status: Never smoker Does the pt drink ETOH?: No Does the pt have substance abuse?: No - Immunizations Immunizations are current?: Yes - POLST Patient has POLST: No PD ED PE NORMAL - Vitals Vital signs reviewed: Yes - General General: Alert and oriented X 3, Well developed/nourished - Neck Neck: Supple, no meningeal sign, No adenopathy - Abdomen Abdomen: Normal bowel sounds, Soft, Non tender, Non distended - Back Back: No CVA TTP, No spinal TTP (just tender in paralumbar muscles, right more. No rash nor redness. ) Results - Vitals Vitals: Vital Signs - 24 hr 08/15/17 19:34 Temperature 36.0 C L Heart Rate 90 Respiratory 18 Rate Blood Pressure 113/73 O2 Saturation 98 Oxygen O2 Source Room air PD MEDICAL DECISION MAKING - ED course Complexity details: reviewed old records, considered differential (she says she gets feeling bad or nauseated with Flexeril, Robaxin, and each other muscle relaxant I name, so will stay with the steroids and hydrocodone. ), d/w patient Departure - Departure Disposition: 01 Home, Self Care Clinical Impression: Fall down stairs Qualifiers: Encounter type: subsequent encounter Qualified Code(s): W10.8XXD - Fall (on) ( from) other stairs and steps, subsequent encounter Back contusion Qualifiers: Encounter type: subsequent encounter Laterality: right Qualified Code(s): S20.221D - Contusion of right back wall of thorax, subsequent encounter Back strain Qualifiers: Encounter type: subsequent encounter Qualified Code(s): S39.012D - Strain of muscle, fascia and tendon of lower back, subsequent encounter Condition: Stable Record reviewed to determine appropriate education?: Yes Instructions: ED Contusion Back Follow-Up: GAIL WADE MD [Primary Care Provider] - Prescriptions: Dexamethasone [Decadron] 4 mg PO DAILY #5 tablet HYDROcod/ACETAM 5/325 [[place] 5/325] 1 tab PO Q6H PRN #20 tablet PRN Reason: Pain Comments: Heat and gentle stretching for the back. You could try Decadron steroid anti- inflammatory daily for several days. Since you are are sensitive to the muscle relaxants we won't use any of those. Add Tylenol or hydrocodone if needed for pain. Follow-up with your primary care next week. Discharge Date/Time: 08/15/17 21:01
[2017-08-15] MEDS ORDERED: HYDROcod/ACET 5/325 Prepack 4 PO STA (20:41)
[2017-08-15] MEDS ORDERED: DEXAMETHASONE 10 MG/ML VIAL PO STA (20:41)
== END 2017-08-15 21:01 | disposition home or self-care (01) ==
LOC: ED 19:31
DX: S39.012A Strain of muscle, fascia and tendon of lower back, initial encounter (principal); S30.0XXA Contusion of lower back and pelvis, initial encounter; W10.8XXA Fall (on) (from) other stairs and steps, initial encounter; Y92.018 Other place in single-family (private) house as the place of occurrence of the external cause; M79.7 Fibromyalgia
CPT/HCPCS: 99283

== ENCOUNTER 2017-09-24 21:46 | Emergency (ER) | payer OTHER ==
[2017-09-24] MEDS ORDERED: KETOROLAC 60 MG/2 ML VIAL IM STA (23:06)
--- NOTE | 2017-09-24 23:11 | ED Physician Documentation ---
PD HPI BACK PAIN - Stated complaint Stated Complaint: BK PX - Chief complaint Chief Complaint: Back Pain - History obtained from History obtained from: Patient - History of Present Illness Timing - onset: How many weeks ago (6) Timing - duration: Weeks (6) Timing - details: Gradual onset Pain level max: 8 Pain level now: 8 Location: Lower, Right, Left Quality: Pain, Spasm, Similar to prior episodes Associated symptoms: No: Fever, Weakness, Numbness, Incontinent of urine, Unable to urinate, Hematuria, Incontinent of stool Improves with: Meds (vicodin) Worsened by: Movement, Lifting, Twisting Contributing factors: Other (states fell last month, pain since. Has had a CT and xrays.). 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 : Other Musculoskeletal: Fibromyalgia - Past Surgical History Past Surgical History: Yes General: Appendectomy, Other /PILE DRIVING SETTER: Tubal ligation, Hysterectomy - Present Medications Home Medications: Ambulatory Orders Medication Instructions Recorded Confirmed raNITIdine HCl [Ranitidine HCl] 150 mg TID 01/16/16 08/02/17 Zolpidem [Ambien] 5 mg PO DAILY 11/27/16 08/02/17 Ondansetron Odt [Zofran] 4 mg TL Q6H PRN #15 tablet 01/12/17 08/02/17 Gabapentin 1 tab PO BID PRN 08/02/17 08/02/17 HYDROcod/ACETAM 5/325 [[place] 5/325] 1 - 2 ea PO Q6H PRN #10 tablet 08/02/17 Dexamethasone [Decadron] 4 mg PO DAILY #5 tablet 08/15/17 HYDROcod/ACETAM 5/325 [[place] 5/325] 1 tab PO Q6H PRN #20 tablet 08/15/17 Hydrocodone/Acetaminophen 1 - 2 each PO Q6H PRN #14 tablet 09/24/17 [Hydrocodon-Acetaminophen 5-325] - Allergies Allergies/Adverse Reactions: Allergies Allergy/AdvReac Type Severity Reaction Status Date / Time Penicillins Allergy Emesis Verified 09/24/17 21:56 - Social History Does the pt smoke?: No Smoking Status: Never smoker Does the pt drink ETOH?: No Does the pt have substance abuse?: No - Immunizations Immunizations are current?: Yes - POLST Patient has POLST: No PD ED PE NORMAL - Vitals Vital signs reviewed: Yes - General General: Alert and oriented X 3, No acute distress - HEENT HEENT: Moist mucous membranes - Neck Neck: Supple, no meningeal sign - Cardiac Cardiac: RRR, Strong equal pulses - Respiratory Respiratory: No respiratory distress, Clear bilaterally - Abdomen Abdomen: Soft, Non tender, Non distended - Back Back: No spinal TTP, Other (No midline tenderness to palpation or percussion. She does have mild spasm bilateral lower lumbar.) - Derm Derm: Warm and dry - Extremities Extremities: No edema, No calf tenderness / cord, Other (normal bilateral lower extremity patellar and ankle jerk reflexes. Normal great toe extension bilaterally) - Neuro Neuro: Alert and oriented X 3, No motor deficit, No sensory deficit Results - Vitals Vitals: Vital Signs - 24 hr 09/24/17 09/24/17 21:52 23:19 Temperature 36.1 C L Heart Rate 92 88 Respiratory 17 15 Rate Blood Pressure 123/74 125/76 O2 Saturation 98 99 Oxygen O2 Source Room air PD MEDICAL DECISION MAKING - ED course Complexity details: reviewed old records (Prior ED visits), considered differential (no cauda equina, no spinal epidural abscess, no fracture, no aortic dissection or evidence of aneursym rupture), d/w patient ED course: Patient is a 37-year-old female with continued back pain. Out of her hydrocodone. Will prescribe a small amount for home and follow-up closely with her doctor. She did not respond well to steroids last time, so I will not prescribe these at this time. She also declines any NSAIDs or meloxicam. She was given a dose of Toradol in the emergency department as she is driving tonight. No evidence of cauda equina, epidural abscess. Patient counseled regarding signs and symptoms for which I believe and urgent re-evaluation would be necessary. Patient with good understanding of and agreement to plan and is comfortable going home at this time This document was made in part using voice recognition software. While efforts are made to proofread this document, sound alike and grammatical errors may occur. Departure - Departure Disposition: 01 Home, Self Care Clinical Impression: Back strain Qualifiers: Encounter type: initial encounter Qualified Code(s): S39.012A - Strain of muscle, fascia and tendon of lower back, initial encounter Condition: Good Instructions: ED Low Back Pain Injury Follow-Up: GAIL WADE MD [Physician No Access] - Within 1 week Prescriptions: Hydrocodone/Acetaminophen [Hydrocodon-Acetaminophen 5-325] 1 - 2 each PO Q6H PRN #14 tablet PRN Reason: pain Comments: Return if you worsen. Make sure to follow-up with your doctor for further care. Do not drink alcohol or drive while on narcotic pain medicine. Note that many narcotic pain relievers also contain tylenol/acetaminophen. Please ensure that your total dose of acetaminophen from all sources does not exceed 3 grams (3000mg) per day. You may constipated on this medication, take a stool softener such as "Colace" twice a day while you are on it. Also recommend a nydx-itz-seizkbf laxative such as senna or MiraLAX any day that you do not have a bowel movement. If you received narcotic pain medication in the emergency department, do not drive or operate machinery for the next 24 hours. Discharge Date/Time: 09/24/17 23:22
[2017-09-24 23:20] VITALS: BP 125/76
== END 2017-09-24 23:22 | disposition home or self-care (01) ==
LOC: ED 21:46
DX: S39.012A Strain of muscle, fascia and tendon of lower back, initial encounter (principal); W19.XXXA Unspecified fall, initial encounter; M79.7 Fibromyalgia
CPT/HCPCS: 96372; 99283

== ENCOUNTER 2017-10-08 17:07 | Emergency (ER) | payer OTHER ==
[2017-10-08 17:31] VITALS: BP 118/80
[2017-10-08] MEDS ORDERED: HYDROcod/ACETAM 5/325 MG TABLET PO STA (17:48)
[2017-10-08] MEDS ORDERED: PROMETHAZINE 25 MG TABLET PO STA (17:48)
--- NOTE | 2017-10-08 17:51 | ED Physician Documentation ---
PD HPI BACK INJURY - Stated complaint Stated Complaint: BACK PX - History obtained from History obtained from: Patient - History of Present Illness Location: Other (About 2 months ago she fell, injured her back and she has had persistent lumbar pain ever since without weakness, numbness, tingling or saddle anesthesia. She saw her doctor in physical therapy was recommended that they could not initiate because they are about to move out of the area. She also notes that she has restless leg syndrome in her legs shake especially at night and she wants something for that and she has been nauseous because of the pain but denies fevers. 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 : Other Musculoskeletal: Fibromyalgia - Past Surgical History Past Surgical History: Yes General: Appendectomy, Other /SECURITY TECHNICIAN: Tubal ligation, Hysterectomy - Present Medications Home Medications: Ambulatory Orders Medication Instructions Recorded Confirmed raNITIdine HCl [Ranitidine HCl] 150 mg TID 01/16/16 08/02/17 Zolpidem [Ambien] 5 mg PO DAILY 11/27/16 08/02/17 Ondansetron Odt [Zofran] 4 mg TL Q6H PRN #15 tablet 01/12/17 08/02/17 Gabapentin 1 tab PO BID PRN 08/02/17 08/02/17 HYDROcod/ACETAM 5/325 [[place] 5/325] 1 - 2 ea PO Q6H PRN #10 tablet 08/02/17 Dexamethasone [Decadron] 4 mg PO DAILY #5 tablet 08/15/17 HYDROcod/ACETAM 5/325 [[place] 5/325] 1 tab PO Q6H PRN #20 tablet 08/15/17 Hydrocodone/Acetaminophen 1 - 2 each PO Q6H PRN #14 tablet 09/24/17 [Hydrocodon-Acetaminophen 5-325] HYDROcod/ACETAM 5/325 [[place] 5/325] 1 - 2 ea PO Q6H PRN #15 tablet 10/08/17 clonazePAM [Clonazepam] 0.5 mg PO QPM #15 tab.rapdis 10/08/17 - Allergies Allergies/Adverse Reactions: Allergies Allergy/AdvReac Type Severity Reaction Status Date / Time Penicillins Allergy Emesis Verified 09/24/17 21:56 - Social History Does the pt smoke?: No Smoking Status: Never smoker Does the pt drink ETOH?: No Does the pt have substance abuse?: No - Immunizations Immunizations are current?: Yes - POLST Patient has POLST: No PD ED PE NORMAL - Vitals Vital signs reviewed: Yes - General General: Alert and oriented X 3, No acute distress - Abdomen Abdomen: Soft, Non tender - Back Back: Other (No midline spinal tenderness, she does wince with motion and has paralumbar muscular tenderness. The patient has equal and normal Achilles and patellar reflexes bilaterally. Normal sensation in all areas of the legs. Patient denies saddle anesthesia. Normal strength in flexion-extension at the ankles, knees, and flexion of the hips.) - Neuro Neuro: Alert and oriented X 3, Normal speech Results - Vitals Vitals: Vital Signs - 24 hr 10/08/17 17:25 Temperature 36.4 C L Heart Rate 102 H Respiratory 16 Rate Blood Pressure 118/80 O2 Saturation 99 Oxygen O2 Source Room air PD MEDICAL DECISION MAKING - Sepsis Event Vital Signs: Vital Signs - 24 hr 10/08/17 17:25 Temperature 36.4 C L Heart Rate 102 H Respiratory 16 Rate Blood Pressure 118/80 O2 Saturation 99 Oxygen O2 Source Room air Departure - Departure Disposition: 01 Home, Self Care Clinical Impression: Back pain Qualifiers: Back pain location: low back pain Chronicity: acute Back pain laterality: midline Sciatica presence: without sciatica Qualified Code(s): M54.5 - Low back pain Condition: Good Record reviewed to determine appropriate education?: Yes Instructions: ED Low Back Pain Injury Prescriptions: clonazePAM [Clonazepam] 0.5 mg PO QPM #15 tab.rapdis HYDROcod/ACETAM 5/325 [[place] 5/325] 1 - 2 ea PO Q6H PRN #15 tablet PRN Reason: Pain Comments: Talk with your new doctor after your upcoming move about physical therapy. Do not drink or drive on any of the prescription medications.
== END 2017-10-08 18:01 | disposition home or self-care (01) ==
LOC: ED 17:07
DX: M54.5 Low back pain (principal)
CPT/HCPCS: 99283; A9270; Q0169